=== PATIENT | female | born 1930 | race Caucasian/White ===

== ENCOUNTER 2018-05-09 16:39 | Inpatient (IN) | payer MEDICARE ==
[~2018-05-09] VITALS: Ht 175.3 cm; Wt 58.7 kg
--- NOTE | 2018-05-09 16:40 | NUR ---
BIB EMS FROM [place] FOR [facility] THIS AM. +CMS. DIFFICULT TO OBTAIN HX PT HAS DEMENTIA AND IS NOT ANSWERING QUESTIONS APPROPRIATELY. NO FAMILY PRESENT. IV DC'D BY PT IN TRANSPORT. PT TRYING TO EXIT [facility], REQUIRING CONSTANT REDIRECTION. SITTER REQUESTED FROM LIFT SUPERVISOR/AUTOMOTIVE DRIVABILITY TECHNICIAN. ERP AT BEDSIDE FOR INITIAL ASSESSMENT.
[2018-05-09] MEDS ORDERED: SODIUM CHLORIDE FLUSH 10ML SYR IVF ONE (17:00)
--- NOTE | 2018-05-09 17:35 | NUR ---
LATE ENTRY: PT RETURNED FROM XRAY, LARGELY INCOOPERATIVE. PT TRYING TO CRAWL OUT OF GURNEY, PT ASSISTED TO LAYING FLAT. TECH AT BEDSIDE FOR EKG. IV RE-ESTABLISHED AND COBAND IN PLACE. CMS REMAINS INTACT. RESTRAINT VEST APPLIED. EVEN/REGULAR RESPIRATIONS NOTED. SPO2 >90% ON 2L BY NC. PT REMAINS TALKATIVE WO INCREASE IN EFFORT. NO SITTER YET AVAILABLE. PT MOVED TO ROOM 25 IN FRONT OF NURSES' STATION. BP/SPO2 MONITOR IN PLACE.
[2018-05-09 17:38] LABS: BASOPHILS # (AUTO) 0.02 x10^3/uL (0-0.1); BASOPHILS % (AUTO) 0 % (0-1); EOSINOPHILS # (AUTO) 0.16 x10^3/uL (0-0.4); EOSINOPHILS % (AUTO) 2 % (1-7); LYMPHOCYTES % (AUTO) 7 % (22-44); MD NO; MEAN CORPUSCULAR HEMOGLOBIN 32.5 pg (27.0-34.8); MEAN CORPUSCULAR HGB CONC 33.9 g/dL (32.4-35.8); MEAN CORPUSCULAR VOLUME 95.7 fL (80-100); MEAN PLATELET VOLUME 7.8 fL (7.4-10.4); MONOCYTES # (AUTO) 0.44 x10^3/uL (0.2-0.8); MONOCYTES % (AUTO) 5 % (2-9); NEUTROPHILS # (AUTO) 7.09 x10^3/uL (1.8-6.8); NEUTROPHILS % (AUTO) 85 % (42-75); PLATELET COUNT 141 x10^3/uL (130-400); RED CELL DISTRIBUTION WIDTH 14.7 % (9.6-15.2)
[2018-05-09 17:46] LABS: INTERNATIONAL NORMALIZED RATIO 1.12 (0.93-1.1); PROTHROMBIN TIME 11.8 Seconds (9.6-11.5)
[2018-05-09 17:57] LABS: ALANINE AMINOTRANSFERASE 17 U/L (12-78); ALBUMIN 3.4 g/dL (3.4-5.0); ANION GAP 5 mmol/L (5-15); CHLORIDE 104 mmol/L (98-107)
[2018-05-09 17:59] LABS: ALKALINE PHOSPHATASE 43 U/L (45-117); BILIRUBIN,TOTAL 1.4 mg/dL (0.2-1.0); TOTAL PROTEIN 6.1 g/dL (6.4-8.2)
[2018-05-09 18:09] LABS: MICROSCOPIC INDICATED
[2018-05-09] MEDS ORDERED: CITA10TA4 PO (18:16)
[2018-05-09] MEDS ORDERED: QUET50TA5 PO (18:16)
[2018-05-09] MEDS ORDERED: AMOX125T PO (18:16)
[2018-05-09] MEDS ORDERED: LORA1TAB PO (18:16)
[2018-05-09 18:19] LABS: CULTURE INDICATED? YES
--- NOTE | 2018-05-09 18:20 | NUR ---
PT LAYING IN GURNEY, MOSTLY SLEEPY. EASILY ARROUSABLE TO VOICE AND LIGHT PHYSICAL STIM. SON AND AT BEDSIDE. EVEN/REGULAR RESPIRATIONS NOTED W/ ADEQUATE BILAT CHEST RISE. SPO2 >90% ON 1L BY NC. SON/ UPDATED TO POC (RESULTS/RECHECK/DISPO) AND DEMONSTRATE UNDERSTANDING.
[2018-05-09] MEDS ORDERED: SODIUM CHLORIDE FLUSH 10ML SYR IVF PRN (19:00)
[2018-05-09] MEDS ORDERED: NS + 20MEQ KCL 1,000 ML IV SCH (19:04)
--- NOTE | 2018-05-09 19:14 | NUR ---
Report from GIO Pollack.
[2018-05-09] MEDS ORDERED: ACETAMINOPHEN 325 MG TABLET PO PRN (19:30)
[2018-05-09] MEDS ORDERED: morphine SULFATE 10 MG/ML, 1ML IVPush PRN (19:30)
[2018-05-09] MEDS ORDERED: ONDANSETRON 2MG/ML, 2ML IVPush PRN (19:30)
[2018-05-09] MEDS ORDERED: HYDROcodone/APAP 5/325 TABLET PO PRN (19:30)
[2018-05-09] MEDS ORDERED: DOCUSATE 100 MG CAPSULE PO PRN (19:30)
[2018-05-09 21:00] VITALS: BP 104/71
[2018-05-09] MEDS ORDERED: HALOPERIDOL 5 MG/ML IM ONE (21:00)
[2018-05-09] MEDS: QUETIAPINE 25MG TABLET PO SCH (21:00)
[2018-05-09] MEDS: LORazepam 1MG TABLET PO SCH (21:00)
[2018-05-09] MEDS: PLEASE ENTER HEIGHT MC SCH (21:30)
[2018-05-09] MEDS: ENOXAPARIN 40 MG/0.4 ML SQ SCH (21:36)
[2018-05-09] MEDS: CEFTRIAXONE PMX 1GM/50ML 50 ML IV SCH (21:55)
[2018-05-09 22:00] VITALS: BP 144/78
[2018-05-10 02:26] VITALS: BP 134/68
[2018-05-10] MEDS: PLEASE ENTER HEIGHT MC SCH (05:30)
[2018-05-10 06:09] LABS: BASOPHILS # (AUTO) 0.01 x10^3/uL (0-0.1); BASOPHILS % (AUTO) 0 % (0-1); EOSINOPHILS # (AUTO) 0.02 x10^3/uL (0-0.4); EOSINOPHILS % (AUTO) 0 % (1-7); LYMPHOCYTES # (AUTO) 0.56 x10^3/uL (1-3.4); LYMPHOCYTES % (AUTO) 7 % (22-44); MD NO; MEAN CORPUSCULAR HEMOGLOBIN 31.6 pg (27.0-34.8); MEAN CORPUSCULAR HGB CONC 33.1 g/dL (32.4-35.8); MEAN CORPUSCULAR VOLUME 95.3 fL (80-100); MEAN PLATELET VOLUME 7.7 fL (7.4-10.4); MONOCYTES # (AUTO) 0.64 x10^3/uL (0.2-0.8); MONOCYTES % (AUTO) 8 % (2-9); NEUTROPHILS % (AUTO) 85 % (42-75); PLATELET COUNT 124 x10^3/uL (130-400); RED BLOOD COUNT 3.17 x10^6/uL (3.82-5.3); RED CELL DISTRIBUTION WIDTH 14.7 % (9.6-15.2)
[2018-05-10 06:31] LABS: ANION GAP 8 mmol/L (5-15); CALCIUM 7.8 mg/dL (8.5-10.1); CHLORIDE 105 mmol/L (98-107)
[2018-05-10 06:32] LABS: CREATININE 0.66 mg/dL (0.55-1.02)
[2018-05-10] MEDS ORDERED: CITALOPRAM 10 MG TABLET PO SCH (09:00)
[2018-05-10] MEDS: SENNA/DOCUSATE TABLET PO SCH (09:00)
[2018-05-10 13:01] VITALS: BP 125/70
[2018-05-10] MEDS: SODIUM CHLORIDE 0.9% 1,000 ML IV SCH (14:53)
[2018-05-10] MEDS: LORazepam 2 MG/ML, 1ML IVPush PRN (17:48)
[2018-05-10 18:44] VITALS: BP 145/78
[2018-05-10] MEDS ORDERED: LORazepam 2 MG/ML, 1ML IVPush SCH (21:00)
[2018-05-10] MEDS: QUETIAPINE 25MG TABLET PO SCH (21:23)
[2018-05-10] MEDS: CEFTRIAXONE PMX 1GM/50ML 50 ML IV SCH (21:24)
[2018-05-10] MEDS: LORazepam 1MG TABLET PO SCH (21:24)
[2018-05-10] MEDS: METOPROLOL TARTRATE 25 MG TABLET PO SCH (21:24)
[2018-05-10] MEDS: ENOXAPARIN 40 MG/0.4 ML SQ SCH (21:28)
[2018-05-11 02:22] VITALS: BP 132/67
[2018-05-11] MEDS: SODIUM CHLORIDE 0.9% 1,000 ML IV SCH (04:20)
[2018-05-11] MEDS: METOPROLOL TARTRATE 25 MG TABLET PO SCH ×2 (06:29→18:00)
[2018-05-11 07:55] VITALS: BP 125/77
[2018-05-11] MEDS: SENNA/DOCUSATE TABLET PO SCH (09:00)
[2018-05-11] MEDS ORDERED: FENTANYL PF 100 MCG/2ML ONE (12:22)
[2018-05-11] MEDS ORDERED: CEFAZOLIN 1,000 MG ONE (12:33)
[2018-05-11] MEDS ORDERED: SUCCINYLCHOLINE 20 MG/ML, 10ML ONE (12:33)
[2018-05-11] MEDS ORDERED: PROPOFOL 10 MG/ML, 20ML ONE (12:33)
[2018-05-11] MEDS ORDERED: ONDANSETRON 2MG/ML, 2ML IV PRN (13:30)
[2018-05-11] MEDS ORDERED: OXYcodone 5 MG/5 ML ORAL.SOL UDC PO PRN ×2 (13:30→15:00)
[2018-05-11] MEDS ORDERED: ACETAMINOPHEN 325 MG TABLET PO PRN (13:30)
[2018-05-11] MEDS ORDERED: MEPERIDINE/PF 25MG/0.5ML IVPush PRN (13:30)
[2018-05-11] MEDS ORDERED: FENTANYL PF 100 MCG/2ML IV PRN (13:30)
[2018-05-11] MEDS ORDERED: MORPHINE SULFATE 4 MG/ML, 1ML IVPush PRN (13:30)
[2018-05-11] MEDS ORDERED: HYDROmorphone 2 MG/ML, 1ML ONE (13:32)
[2018-05-11] MEDS: HYDROmorphone 2 MG/ML, 1ML IVPush PRN ×2 (13:34→13:43)
[2018-05-11 14:24] VITALS: BP 157/77
[2018-05-11] MEDS ORDERED: HYDROcodone/APAP 5/325 TABLET PO PRN (15:00)
[2018-05-11] MEDS ORDERED: AMOXICILLIN MC SCH (15:00)
[2018-05-11] MEDS: LORazepam 2 MG/ML, 1ML IVPush PRN (15:23)
[2018-05-11] MEDS ORDERED: SODIUM CHLORIDE 0.9% 1,000 ML IV SCH (15:30)
[2018-05-11] MEDS ORDERED: CEFAZOLIN PMX 1GM/50ML 50 ML IVPB SCH (15:30)
[2018-05-11] MEDS ORDERED: HYDROmorphone 2 MG/ML, 1ML IVPush PRN (15:43)
[2018-05-11] MEDS: KETOROLAC 30 MG/1 ML IV SCH ×2 (16:18→23:30)
[2018-05-11] MEDS ORDERED: CIPROFLOXACIN LACTATE 200 MG in DEXTROSE 5% 100 ML IV SCH (18:30)
[2018-05-11 19:00] VITALS: BP 116/75
[2018-05-11] MEDS: CIPROFLOXACIN/DEXT 200MG PMX 100 ML IVPB SCH (20:40)
[2018-05-11] MEDS: SODIUM CHLORIDE FLUSH 10ML SYR IVF SCH (20:43)
[2018-05-11 22:00] VITALS: BP 115/70
[2018-05-11] MEDS: QUETIAPINE 25MG TABLET PO SCH (22:20)
[2018-05-11] MEDS: DOCUSATE 100 MG CAPSULE PO SCH (22:20)
[2018-05-11] MEDS: LORazepam 1MG TABLET PO SCH (22:21)
[2018-05-11] MEDS ORDERED: SODIUM CHLORIDE 0.9% 1,000 ML IVBOLUS PRN (23:54)
[2018-05-12] VITALS: BP 71/41
[2018-05-12] MEDS ORDERED: SODIUM CHLORIDE 0.9% 1,000 ML IV SCH (02:00)
[2018-05-12 03:05] VITALS: BP 100/57
[2018-05-12] MEDS: METOPROLOL TARTRATE 25 MG TABLET PO SCH ×2 (05:40→17:59)
[2018-05-12] MEDS: ENOXAPARIN 40 MG/0.4 ML SQ SCH (07:17)
[2018-05-12] MEDS: SODIUM CHLORIDE 0.9% 1,000 ML IV SCH ×2 (07:17→20:39)
[2018-05-12] MEDS: KETOROLAC 30 MG/1 ML IV SCH (07:52)
[2018-05-12 08:00] VITALS: BP 101/67
[2018-05-12] MEDS ORDERED: MAGNESIUM SULFATE PMX 2GM/50ML 50 ML IV ONE (08:00)
[2018-05-12] MEDS: DOCUSATE 100 MG CAPSULE PO SCH ×2 (08:02→20:25)
[2018-05-12] MEDS ORDERED: CITALOPRAM 10 MG TABLET PO SCH (09:00)
[2018-05-12] MEDS: SODIUM CHLORIDE FLUSH 10ML SYR IVF SCH ×2 (09:00→20:32)
[2018-05-12] MEDS ORDERED: POTASSIUM PHOSPHATE 44 MEQ in SODIUM CHLORIDE 0.9% 500 ML IV ONE (09:30)
[2018-05-12] MEDS: CIPROFLOXACIN/DEXT 200MG PMX 100 ML IVPB SCH ×2 (11:20→23:35)
[2018-05-12 13:06] VITALS: BP 97/52
[2018-05-12] MEDS: LORazepam 2 MG/ML, 1ML IVPush PRN (14:41)
[2018-05-12 14:42] VITALS: BP 127/65
[2018-05-12 20:20] VITALS: BP 114/70
[2018-05-12] MEDS ORDERED: ZIPRASIDONE 20 MG INJ IM ONE (20:30)
[2018-05-12] MEDS: LORazepam 1MG TABLET PO SCH (21:00)
[2018-05-13] MEDS: QUETIAPINE 25MG TABLET PO SCH ×2 (00:19→21:42)
[2018-05-13 00:54] VITALS: BP 99/61
[2018-05-13] MEDS ORDERED: SODIUM CHLORIDE 0.9% 1,000 ML IV SCH (02:00)
[2018-05-13] MEDS ORDERED: KETOROLAC 30 MG/1 ML IVPush SCH (02:00)
[2018-05-13 05:51] VITALS: BP 133/77
[2018-05-13] MEDS: METOPROLOL TARTRATE 25 MG TABLET PO SCH ×2 (05:53→21:40)
[2018-05-13 05:56] LABS: MEAN CORPUSCULAR HEMOGLOBIN 32.8 pg (27.0-34.8); MEAN CORPUSCULAR HGB CONC 34.9 g/dL (32.4-35.8); MEAN CORPUSCULAR VOLUME 93.9 fL (80-100); MEAN PLATELET VOLUME 8.4 fL (7.4-10.4); PLATELET COUNT 111 x10^3/uL (130-400); RED BLOOD COUNT 2.36 x10^6/uL (3.82-5.3); RED CELL DISTRIBUTION WIDTH 14.6 % (9.6-15.2)
[2018-05-13 06:02] LABS: CALCIUM 7.6 mg/dL (8.5-10.1); CHLORIDE 108 mmol/L (98-107)
[2018-05-13] MEDS: SODIUM CHLORIDE 0.9% 1,000 ML IV SCH (06:02)
[2018-05-13 06:08] LABS: ALANINE AMINOTRANSFERASE 16 U/L (12-78); ALBUMIN 2.9 g/dL (3.4-5.0); ALKALINE PHOSPHATASE 33 U/L (45-117); ANION GAP 5 mmol/L (5-15); BILIRUBIN,TOTAL 1.2 mg/dL (0.2-1.0); CREATININE 0.49 mg/dL (0.55-1.02); TOTAL PROTEIN 5.5 g/dL (6.4-8.2)
[2018-05-13 06:17] LABS: BASOPHILS # (AUTO) 0.01 x10^3/uL (0-0.1); BASOPHILS % (AUTO) 0 % (0-1); EOSINOPHILS % (AUTO) 0 % (1-7); LYMPHOCYTES # (AUTO) 0.33 x10^3/uL (1-3.4); LYMPHOCYTES % (AUTO) 5 % (22-44); MD SCAN; MONOCYTES # (AUTO) 0.45 x10^3/uL (0.2-0.8); MONOCYTES % (AUTO) 7 % (2-9); NEUTROPHILS # (AUTO) 5.58 x10^3/uL (1.8-6.8); NEUTROPHILS % (AUTO) 88 % (42-75)
[2018-05-13 07:51] VITALS: BP 115/64
[2018-05-13] MEDS: DOCUSATE 100 MG CAPSULE PO SCH ×3 (09:00→21:41)
[2018-05-13] MEDS: ENOXAPARIN 40 MG/0.4 ML SQ SCH (09:43)
[2018-05-13] MEDS: SODIUM CHLORIDE FLUSH 10ML SYR IVF SCH ×2 (09:43→21:00)
[2018-05-13] MEDS: CIPROFLOXACIN 250 MG TABLET PO SCH ×2 (09:43→21:00)
[2018-05-13 13:07] VITALS: BP 113/67
[2018-05-13] MEDS ORDERED: CIPROFLOXACIN 500 MG TABLET ONE (21:22)
[2018-05-13 21:38] VITALS: BP 110/69
[2018-05-13] MEDS: LORazepam 1MG TABLET PO SCH (21:39)
[2018-05-14] MEDS: SODIUM CHLORIDE 0.9% 1,000 ML IV SCH ×2 (00:17→13:12)
[2018-05-14 01:48] VITALS: BP 109/68
[2018-05-14] MEDS: METOPROLOL TARTRATE 25 MG TABLET PO SCH ×2 (06:00→17:59)
[2018-05-14] MEDS: SODIUM CHLORIDE FLUSH 10ML SYR IVF SCH ×2 (09:00→21:00)
[2018-05-14 09:33] VITALS: BP 129/79
[2018-05-14] MEDS ORDERED: CIPROFLOXACIN 500 MG TABLET ONE ×2 (10:43→21:11)
[2018-05-14] MEDS: POLYETHYLENE GLYCOL 17 GM PACKET PO PRN (11:10)
[2018-05-14] MEDS: DOCUSATE 100 MG CAPSULE PO SCH ×2 (11:10→21:26)
[2018-05-14] MEDS: CIPROFLOXACIN 250 MG TABLET PO SCH ×2 (11:10→21:00)
[2018-05-14] MEDS: ENOXAPARIN 40 MG/0.4 ML SQ SCH (11:10)
[2018-05-14 12:59] VITALS: BP 121/75
[2018-05-14] MEDS ORDERED: POTASSIUM PHOSPHATE 44 MEQ in SODIUM CHLORIDE 0.9% 500 ML IV ONE (17:00)
[2018-05-14 18:00] VITALS: BP 85/51
[2018-05-14 19:50] VITALS: BP 79/49
[2018-05-14] MEDS: LORazepam 1MG TABLET PO SCH (21:26)
[2018-05-14] MEDS: QUETIAPINE 25MG TABLET PO SCH (21:27)
[2018-05-15] VITALS (11 sets, daily range): BP systolic 86–143; BP diastolic 53–98
[2018-05-15] MEDS: SODIUM CHLORIDE 0.9% 1,000 ML IV SCH ×2 (00:50→17:13)
[2018-05-15] MEDS: METOPROLOL TARTRATE 25 MG TABLET PO SCH ×2 (06:00→17:13)
[2018-05-15] MEDS ORDERED: CIPROFLOXACIN 500 MG TABLET ONE (08:57)
[2018-05-15] MEDS: DOCUSATE 100 MG CAPSULE PO SCH ×2 (09:04→21:19)
[2018-05-15] MEDS: SODIUM CHLORIDE FLUSH 10ML SYR IVF SCH ×2 (09:04→22:31)
[2018-05-15] MEDS: POLYETHYLENE GLYCOL 17 GM PACKET PO PRN (09:04)
[2018-05-15] MEDS: CIPROFLOXACIN 250 MG TABLET PO SCH (09:04)
[2018-05-15] MEDS: ENOXAPARIN 40 MG/0.4 ML SQ SCH (11:00)
[2018-05-15] MEDS: MAGNESIUM OXIDE 400 MG TABLET PO SCH ×2 (12:08→22:31)
[2018-05-15] MEDS: CIPROFLOXACIN 500 MG TABLET PO SCH (21:19)
[2018-05-15] MEDS: ASPIRIN 81 MG TABLET EC PO SCH (21:19)
[2018-05-15] MEDS: LORazepam 1MG TABLET PO SCH (21:19)
[2018-05-15] MEDS: QUETIAPINE 25MG TABLET PO SCH (22:31)
[2018-05-16 03:58] VITALS: BP 133/83
[2018-05-16] MEDS: METOPROLOL TARTRATE 25 MG TABLET PO SCH (05:51)
[2018-05-16] MEDS: SODIUM CHLORIDE 0.9% 1,000 ML IV SCH (05:51)
[2018-05-16 07:35] VITALS: BP 103/63
[2018-05-16] MEDS: DOCUSATE 100 MG CAPSULE PO SCH (09:09)
[2018-05-16] MEDS: ASPIRIN 81 MG TABLET EC PO SCH (09:09)
[2018-05-16] MEDS: CIPROFLOXACIN 500 MG TABLET PO SCH (09:09)
[2018-05-16] MEDS: MAGNESIUM OXIDE 400 MG TABLET PO SCH (09:09)
[2018-05-16] MEDS: POLYETHYLENE GLYCOL 17 GM PACKET PO PRN (09:10)
[2018-05-16] MEDS: SODIUM CHLORIDE FLUSH 10ML SYR IVF SCH (09:19)
[2018-05-16] MEDS ORDERED: LACTULOSE 3.3 GM/5 ML ORAL.SOL RC ONE (10:00)
[2018-05-16] MEDS ORDERED: BISACODYL 10 MG SUPP PR ONE (10:00)
[2018-05-16] MEDS ORDERED: POLY17PO5 PO (11:38)
[2018-05-16] MEDS ORDERED: METO25TA35 PO (11:38)
[2018-05-16] MEDS ORDERED: LORA-445 PO (11:38)
[2018-05-16] MEDS ORDERED: MAGN400T50 PO (11:38)
[2018-05-16] MEDS ORDERED: ACET325T14 PO (11:38)
[2018-05-16] MEDS ORDERED: CIPR500T87 PO (11:38)
[2018-05-16] MEDS ORDERED: ASPI81TA45 PO (11:38)
[2018-05-16] MEDS ORDERED: TRAM50TA2 PO (11:38)
[2018-05-16 13:48] VITALS: BP 116/77
== END 2018-05-16 14:15 | DRG 853 ==
LOC: SUATTDRO 18:52 → ED 19:03 → EDIP 19:05 → 4NOR 20:40 → 5SO 05-12 08:31 → 4NOR 05-13 17:30
PROVIDERS: ADMIT Family Medicine; ATTEND Family Medicine
PROC: 0T9B70Z Drainage of Bladder with Drainage Device, Via Natural or Artificial Opening (ICD-10-PCS; 2018-05-09)
PROC: 0QH636Z Insertion of Intramedullary Internal Fixation Device into Right Upper Femur, Percutaneous Approach (ICD-10-PCS; principal; 2018-05-11 12:30)
PROC: 30233N1 Transfusion of Nonautologous Red Blood Cells into Peripheral Vein, Percutaneous Approach (ICD-10-PCS; 2018-05-15)
DX: A41.9 Sepsis, unspecified organism (principal); S72.141A Displaced intertrochanteric fracture of right femur, initial encounter for closed fracture; E43 Unspecified severe protein-calorie malnutrition; S32.9XXA Fracture of unspecified parts of lumbosacral spine and pelvis, initial encounter for closed fracture; N39.0 Urinary tract infection, site not specified; Z68.1 Body mass index [BMI] 19.9 or less, adult; G93.40 Encephalopathy, unspecified; Z66 Do not resuscitate; W06.XXXA Fall from bed, initial encounter; I48.91 Unspecified atrial fibrillation; F03.90 Unspecified dementia, unspecified severity, without behavioral disturbance, psychotic disturbance, mood disturbance, and anxiety; I95.9 Hypotension, unspecified; B96.5 Pseudomonas (aeruginosa) (mallei) (pseudomallei) as the cause of diseases classified elsewhere; D64.9 Anemia, unspecified; E83.39 Other disorders of phosphorus metabolism; E83.42 Hypomagnesemia; Z95.0 Presence of cardiac pacemaker; Y93.89 Activity, other specified; Y92.89 Other specified places as the place of occurrence of the external cause; Y99.8 Other external cause status
CPT/HCPCS: 36415; 71045; 76000; 80048; 80053; 81001; 83735; 84100; 85014; 85018; 85025; 85610; 85730; 86850; 86900; 86923; 87040; 87077; 87086; 87186; 93005; 99285; C1713; G0378; J0690; J0696; J1170; J1650; J1885; J2704; J3010; J3480; J3486; J0330; J1630; J2060; J3475; J7030; J7040; J7512; P9016

== ENCOUNTER 2018-08-09 06:15 | Inpatient (IN) | payer MEDICARE ==
[~2018-08-09] VITALS: Ht 162.6 cm; Wt 52.8 kg
[~2018-08-09 06:15] MED LIST: ACET325T14 PO; AMOX125T PO; ASPI81TA45 PO; CIPR500T87 PO; CITA10TA4 PO; LORA-445 PO; LORA1TAB PO; MAGN400T50 PO; METO25TA35 PO; POLY17PO5 PO; QUET50TA5 PO; TRAM50TA2 PO
[2018-08-09] MEDS ORDERED: SODIUM CHLORIDE FLUSH 10ML SYR IVF ONE (06:30)
--- NOTE | 2018-08-09 06:30 | NUR ---
LATE ENTRY:MARIAH NIELSEN FROM [facility] FOR C/O MULTIPLE FALLS OVER THE LAST 24 HOURS. PT. A&O X 1 AT BASELINE. MULTIPLE BRUISES NOTED; MOSTLY TO RIGHT FACE/LIPS/WRIST/KNEE. PT. SHOUTS "OUCH" WHEN BEING TOUCHED ANYWEHRE. DR. SHRESTHA WAS IN TO EVAL PT. AND DISCUSS POC. EKG DONE AND COMPLETED TO ERMD. CONTINUOUS PULSE OX, B/P, AND HEART MONITORS APPLIED. IV IN PLACE BY EMS. PT. ALERT TO SELF ONLY. PATEL X 4; MODERATE WEAKNESS. CALL LIGHT IN REACH. ALL SAFETY MEASURES OBSERVED.
--- NOTE | 2018-08-09 06:35 | NUR ---
STRAIGHT CATH UA PERFORMED PER MD ORDER AND WALKED TO LAB. PT. TOLERATED WELL.
[2018-08-09 06:45] LABS: MICROSCOPIC AUTO
[2018-08-09 06:48] LABS: CULTURE INDICATED? YES
[2018-08-09 06:55] LABS: BASOPHILS # (AUTO) 0.02 x10^3/uL (0-0.1); BASOPHILS % (AUTO) 0 % (0-1); EOSINOPHILS # (AUTO) 0.01 x10^3/uL (0-0.4); EOSINOPHILS % (AUTO) 0 % (1-7); LYMPHOCYTES # (AUTO) 0.58 x10^3/uL (1-3.4); LYMPHOCYTES % (AUTO) 8 % (22-44); MD NO; MEAN CORPUSCULAR HEMOGLOBIN 30.9 pg (27.0-34.8); MEAN CORPUSCULAR HGB CONC 32.8 g/dL (32.4-35.8); MEAN CORPUSCULAR VOLUME 94.1 fL (80-100); MEAN PLATELET VOLUME 7.2 fL (7.4-10.4); MONOCYTES # (AUTO) 0.42 x10^3/uL (0.2-0.8); MONOCYTES % (AUTO) 6 % (2-9); NEUTROPHILS # (AUTO) 6.34 x10^3/uL (1.8-6.8); NEUTROPHILS % (AUTO) 86 % (42-75); PLATELET COUNT 179 x10^3/uL (130-400); RED CELL DISTRIBUTION WIDTH 14.4 % (9.6-15.2)
[2018-08-09] MEDS ORDERED: CEFTAZIDIME PMX 2 GM/50ML 50 ML IV ONE (07:00)
[2018-08-09 07:05] LABS: INTERNATIONAL NORMALIZED RATIO 1.09 (0.93-1.1); PROTHROMBIN TIME 11.4 Seconds (9.6-11.5)
[2018-08-09 07:08] LABS: ALANINE AMINOTRANSFERASE 24 U/L (12-78); ALBUMIN 3.5 g/dL (3.4-5.0); ANION GAP 5 mmol/L (5-15); CALCIUM 8.7 mg/dL (8.5-10.1); CHLORIDE 108 mmol/L (98-107); CREATININE 0.65 mg/dL (0.55-1.02)
[2018-08-09 07:11] LABS: ALKALINE PHOSPHATASE 58 U/L (45-117); CREATINE KINASE, TOTAL 69 U/L (26-192); TOTAL PROTEIN 6.3 g/dL (6.4-8.2)
--- NOTE | 2018-08-09 07:28 | NUR ---
Pt requesting to go to bathroom. Pt provided bedpan. Pt unable to urinate on bedpan at this time. Called radiology and updated that pt is ready to go to imaging.
--- NOTE | 2018-08-09 07:28 | NUR ---
LATE NOTE FROM 0700: Recieved report from GIO Marquez. All questiosn answered. Assuming care of pt.
[2018-08-09] MEDS ORDERED: NITR50CA PO (07:42)
[2018-08-09] MEDS ORDERED: MULT-750 PO (07:42)
[2018-08-09] MEDS ORDERED: CALC-55 PO (07:42)
[2018-08-09] MEDS ORDERED: DIPH25CA61 PO (07:42)
--- NOTE | 2018-08-09 07:43 | NUR ---
Pt transported on gurney to imaging. All safety measures in place.
--- NOTE | 2018-08-09 08:13 | NUR ---
Pt remains at imaging at this time on [facility].
--- NOTE | 2018-08-09 08:29 | NUR ---
Pt back to room from x-ray and reconnected to all monitors. NADN. No needs expressed. All safety measures in place. Family at bedside. Providing medicaiton per EMAR.
--- NOTE | 2018-08-09 09:34 | NUR ---
AT 0900 MD CASTING WRIST, AT 0935 PT CANNOT LAY STILL-UNABLE TO SCAN CT
--- NOTE | 2018-08-09 09:49 | NUR ---
Provided report to GIO Hardy. All questions answered. Pt ready to transfer to floor from ED to 331.
[2018-08-09] MEDS ORDERED: LORazepam 2 MG/ML, 1ML ONE (10:05)
--- NOTE | 2018-08-09 10:22 | NUR ---
REPORT RECEIVED FROM GIO MCCORMICK. ASSUMED CARE OF PT. PT TO BE MEDICATED FOR CT SCAN AND THEN TRANSFERRED TO FLOOR UPSTAIRS. PT MEDICATED ORDERED. CT CALLED AND MADE AWARE. PT NOW IN CT IMAGING.
[2018-08-09] MEDS ORDERED: LORazepam 2 MG/ML, 1ML IVPush ONE (10:30)
[2018-08-09] MEDS ORDERED: LIDODERM 5% PATCH TD PRN (12:00)
[2018-08-09] MEDS ORDERED: ONDANSETRON ODT 4 MG PO PRN (12:00)
[2018-08-09] MEDS ORDERED: hydrALAzine 20 MG/ML, 1ML IVPush PRN (12:00)
[2018-08-09] MEDS ORDERED: DOCUSATE 100 MG CAPSULE PO PRN (12:00)
[2018-08-09] MEDS ORDERED: ACETAMINOPHEN 325 MG TABLET PO PRN ×2 (12:00→19:00)
[2018-08-09] MEDS ORDERED: GUAIFENESIN/DM 200-20MG, 10ML UDC PO PRN (12:00)
[2018-08-09] MEDS ORDERED: CEFTRIAXONE PMX 1GM/50ML 50 ML IV SCH (12:00)
[2018-08-09 12:37] LABS: THYROID STIMULATING HORMONE 1.39 mIU/L (0.358-3.740)
[2018-08-09 13:06] VITALS: BP 125/79
[2018-08-09 17:19] VITALS: BP 151/94
[2018-08-09 18:46] VITALS: BP 147/88
[2018-08-09] MEDS ORDERED: LORazepam 0.5MG TABLET PO PRN (19:00)
[2018-08-09] MEDS ORDERED: POLYETHYLENE GLYCOL 17 GM PACKET PO PRN (19:00)
[2018-08-09 19:11] VITALS: BP 139/90
[2018-08-09] MEDS: DIPHENHYDRAMINE 25 MG CAPSULE PO SCH ×2 (21:00→22:13)
[2018-08-10 00:23] VITALS: BP 134/85
[2018-08-10 02:57] VITALS: BP 112/69
[2018-08-10 04:56] LABS: BASOPHILS # (AUTO) 0.01 x10^3/uL (0-0.1); BASOPHILS % (AUTO) 0 % (0-1); EOSINOPHILS # (AUTO) 0.03 x10^3/uL (0-0.4); EOSINOPHILS % (AUTO) 0 % (1-7); LYMPHOCYTES # (AUTO) 0.49 x10^3/uL (1-3.4); LYMPHOCYTES % (AUTO) 5 % (22-44); MD NO; MEAN CORPUSCULAR HGB CONC 33.1 g/dL (32.4-35.8); MEAN CORPUSCULAR VOLUME 93.7 fL (80-100); MEAN PLATELET VOLUME 7.4 fL (7.4-10.4); MONOCYTES # (AUTO) 0.56 x10^3/uL (0.2-0.8); MONOCYTES % (AUTO) 6 % (2-9); NEUTROPHILS # (AUTO) 8.49 x10^3/uL (1.8-6.8); NEUTROPHILS % (AUTO) 89 % (42-75); PLATELET COUNT 161 x10^3/uL (130-400); RED BLOOD COUNT 3.76 x10^6/uL (3.82-5.3); RED CELL DISTRIBUTION WIDTH 14.4 % (9.6-15.2)
[2018-08-10 05:06] LABS: ANION GAP 6 mmol/L (5-15); CALCIUM 8.5 mg/dL (8.5-10.1); CHLORIDE 99 mmol/L (98-107); CREATININE 0.55 mg/dL (0.55-1.02)
[2018-08-10 06:42] VITALS: BP 111/71
[2018-08-10] MEDS: MULTIVITAMIN 1 TABLET PO SCH (09:00)
[2018-08-10] MEDS: CALCIUM/VITAMIN D3 250-125 TABLET PO SCH (09:00)
[2018-08-10] MEDS: CEFTRIAXONE PMX 1GM/50ML 50 ML IV SCH (10:12)
[2018-08-10 13:31] VITALS: BP 151/93
[2018-08-10 14:41] VITALS: BP 133/87
[2018-08-10 18:42] VITALS: BP 129/74
[2018-08-10] MEDS ORDERED: DIPHENHYDRAMINE 12.5MG/5ML ORAL SOL PO SCH (21:00)
[2018-08-10] MEDS ORDERED: DIPHENHYDRAMINE 12.5MG/5ML, 10ML UDC ONE (21:08)
[2018-08-11 02:51] VITALS: BP 118/78
[2018-08-11 04:54] LABS: ANION GAP 6 mmol/L (5-15); CALCIUM 8.3 mg/dL (8.5-10.1); CHLORIDE 102 mmol/L (98-107)
[2018-08-11 04:56] LABS: CREATININE 0.63 mg/dL (0.55-1.02)
[2018-08-11 07:57] VITALS: BP 114/68
[2018-08-11] MEDS: MULTIVITAMIN 1 TABLET PO SCH (09:00)
[2018-08-11] MEDS: CALCIUM/VITAMIN D3 250-125 TABLET PO SCH (09:00)
[2018-08-11] MEDS: CEFTRIAXONE PMX 1GM/50ML 50 ML IV SCH (09:15)
--- NOTE | 2018-08-11 10:07 | NUR ---
REC GROUND/THIN; 1:1 feeder - swallow precaution sheet posted at bedside Addendum: 08/11/18 at [facility] by [address] Amended: Links added.
[2018-08-11 12:10] VITALS: BP 103/63
[2018-08-11] MEDS ORDERED: CEFP200T PO ×2 (15:21)
[2018-08-11] MEDS ORDERED: LIDO700A20 TD (15:21)
[2018-08-11] MEDS ORDERED: CEFPODOXIME PO (17:02)
== END 2018-08-11 18:47 | disposition home or self-care (01) | DRG 543 ==
LOC: ED 08:22 → EDIP 08:43 → 3NW 10:45
PROVIDERS: ADMIT Hospitalist; ATTEND Hospitalist
PROC: 0T9B70Z Drainage of Bladder with Drainage Device, Via Natural or Artificial Opening (ICD-10-PCS; principal; 2018-08-09)
DX: M80.031A Age-related osteoporosis with current pathological fracture, right forearm, initial encounter for fracture (principal); N39.0 Urinary tract infection, site not specified; S09.90XA Unspecified injury of head, initial encounter; R29.6 Repeated falls; F03.90 Unspecified dementia, unspecified severity, without behavioral disturbance, psychotic disturbance, mood disturbance, and anxiety; S69.81XA Other specified injuries of right wrist, hand and finger(s), initial encounter; I48.91 Unspecified atrial fibrillation; W01.0XXA Fall on same level from slipping, tripping and stumbling without subsequent striking against object, initial encounter; Y93.89 Activity, other specified; Y99.8 Other external cause status; Y92.128 Other place in nursing home as the place of occurrence of the external cause
CPT/HCPCS: 36415; 70450; 70486; 71045; 80048; 80053; 81001; 82550; 84439; 84443; 85025; 85610; 87077; 87086; 87186; 93005; 96365; 99285; G0378; J0696; J0713; Q0163